=== PATIENT | male | born 1980 | race Caucasian/White ===

== ENCOUNTER 2017-09-26 20:30 | Emergency (ER) | payer MEDICAID ==
[~2017-09-26] VITALS: Ht 185.4 cm; Wt 65.8 kg
[2017-09-26] MEDS ORDERED: IPRATROPIUM BROM 0.5 MG/2.5ML INH SOL NEB ONE ×2 (20:45→22:45)
[2017-09-26] MEDS ORDERED: ALBUTEROL SULF 2.5 MG/0.5ML(0.5%) NEB SOLN HHN STA (20:45)
[2017-09-26] MEDS ORDERED: ALBUTEROL SULF 2.5 MG/0.5ML(0.5%) NEB SOLN NEB ONE (22:45)
[2017-09-27 01:05] VITALS: BP 120/76
== END 2017-09-27 01:14 | disposition home or self-care (01) ==
LOC: ER 20:30
DX: J45.909 Unspecified asthma, uncomplicated (principal)
CPT/HCPCS: 71045; 71250; 94640